=== PATIENT | female | born 1980 | race Two or more races ===

== ENCOUNTER 2022-03-14 11:06 | Emergency (ER) | payer OTHER, SELFPAY ==
--- NOTE | ~2022-03-14 | CT_ITS ---
EXAMINATION: CT HEAD WITHOUT CONTRAST CLINICAL INFORMATION: Headache. COMPARISON: None TECHNIQUE: Contiguous axial imaging was performed from the skull base to vertex without intravenous administration of contrast. This CT examination was performed using dose optimization techniques as appropriate, variously including the following: *Automated exposure control *Adjustment of mA and/or kV according to patient size (this includes techniques or standardized protocols for targeted exams where dose is matched to indication/reason for exam; i.e. extremities or head) *Use of iterative reconstruction technique DLP: 744 mGy-cm FINDINGS: There is no acute intra-axial, extra-axial bleed, masses or midline shift. There is no acute infarction evolution. The lateral ventricles are symmetrical in size and configuration without enlargement. No acute edema seen. The chen to white matter difference is maintained normal. Bone windows reveal no calvarial abnormality. There is no scalp soft tissue abnormality. Bilateral paranasal sinuses and mastoid air cells are well-aerated.. CT/CT head/brain wo IV con IMPRESSION: No acute intracranial process seen.
--- NOTE | ~2022-03-14 | XR_ITS ---
EXAMINATION: XR CHEST CLINICAL INFORMATION: Shortness of breath. COMPARISON: None TECHNIQUE: Portable AP view of the chest was obtained. FINDINGS: No significant abnormality is noted involving the heart, lungs, mediastinum, bony thorax or soft tissues. XR/XR chest 1V IMPRESSION: Unremarkable examination.
[2022-03-14 11:39] VITALS: BP 142/79; PULSE 70; RESP 18; TEMP 36.4; O2SAT 98; BMI 39.1
--- NOTE | 2022-03-14 11:43 | ECG_ITS ---
Test Reason : HEADACHE/NAUSEA Blood Pressure : / mmHG Vent. Rate : 064 BPM Atrial Rate : 064 BPM P-R Int : 132 ms QRS Dur : 074 ms QT Int : 406 ms P-R-T Axes : 047 006 -01 degrees QTc Int : 418 ms Normal sinus rhythm Low voltage QRS Nonspecific T wave abnormality Abnormal ECG No previous ECGs available Referred By: Omega Segovia Electronically Signed By:ELVIS JACOBO MD
--- NOTE | 2022-03-14 11:44 | ED_ITS ---
HPI - General Adult General Chief complaint: Headache Stated complaint: Headache/Nausea/SOB Time Seen by Provider: 03/14/22 13:42 Related Data Previous Rx's Medication Instructions Recorded ibuprofen 800 mg tablet 800 mg PO Q6H PRN pain #30 tabs 03/14/22 metoclopramide HCl 10 mg tablet 10 mg PO Q6H PRN nausea and 03/14/22 vomiting #14 tabs Allergies Allergy/AdvReac Type Severity Reaction Status Date / Time No Known Allergies Allergy Unverified 10/24/19 19:47 [No Known Allergies*] [facility] Social History Social History Advance Directives: Yes Advance Directives Information Provided: Yes Advance Directives on File: No Physical Exam ED Vital Signs: Vital Signs - 24 hr 03/14/22 11:39 03/14/22 17:15 Temperature 97.5 F Pulse Rate 70 64 Respiratory Rate 18 16 Blood Pressure 142/79 H 115/70 Pulse Oximetry 98 100 Oxygen Delivery Method Room Air Room Air BMI result Body Mass Index 39.1 Course Course Course Narrative: 41 yold female presents to the ED for headache, dizziness, SoB, and photosens itibity. patient denies any neuro/stroke symptoms. negative for any neuro defecitis on exam. states MRI finding on [facility], but does not know what it is. labs ordered. No neck stiffness on exam. Medications Administered Discontinued Medications Generic Name Dose Route Start Last Admin Trade Name Freq PRN Reason Stop Dose Admin Sodium Chloride 1,000 mls @ 999 mls/hr 03/14/22 15:30 03/14/22 16:14 Ns IV 03/14/22 16:30 999 mls/hr .Q1H1M DOMINGO Administration Ketorolac Tromethamine 30 mg 03/14/22 15:21 03/14/22 16:17 Ketorolac Tromethamine 15 Mg/Ml Vial IVPUSH 03/14/22 15:22 30 mg ONCE ONE Administration Medical Decision Making Lab Data 03/14/22 12:05 03/14/22 12:05 Labs: Lab Results 03/14/22 03/14/22 03/14/22 Range/Units 12:05 12:05 12:05 WBC 6.0 (4.8-10.8) X10*3/uL RBC 4.60 (4.20-5.50) X10*6/uL Hgb 13.0 (12.0-16.0) g/dl Hct 39.4 (37.0-47.0) % MCV 85.7 (80.0-98.0) fL MCH 28.3 (27.0-33.0) pg MCHC 33.0 (31.0-35.0) g/dl RDW 13.4 (11.0-16.0) % Plt Count 359 (160-400) X10*3/uL MPV 9.8 (9.4-12.3) fL Immature Gran % (Auto) 0.3 (0.0-0.4) % Neut % (Auto) 49.7 (45-73) % Lymph % (Auto) 40.7 H (20-40) % [place] % (Auto) 7.3 (2-11) % Eos % (Auto) 1.7 (0-4) % Baso % (Auto) 0.3 (0-2) % Lymph # (Auto) 2.5 (1.2-4.9) X10*3/uL [place] # (Auto) 0.4 (0.1-1.2) X10*3/uL Eos # (Auto) 0.1 (0.0-0.4) X10*3/uL Baso # (Auto) 0.0 (0.0-0.2) X10*3/uL Abs Immat Gran (auto) 0.02 (0.00-0.03) X10*3/uL Absolute Neuts (auto) 3.0 (2.0-8.3) x10*3/uL Absolute Nucleated RBC 0.000 (0.0-0.012) X10*3/uL Nucleated RBC % (auto) 0.0 (0.0-0.2) /100WBC PT 12.0 (10.0-13.1) SEC INR 1.0 (0.9-1.1) APTT 29.6 (26.0-36.4) SEC Sodium 138 (135-145) mmol/L Potassium 4.1 (3.3-5.1) mmol/L Chloride 106 (96-108) mmol/L Carbon Dioxide 22 (22-29) mmol/L Anion Gap 14 (12-20) BUN 9 (9-16) mg/dL Creatinine 0.82 (0.5-1.4) mg/dL Estim Creat Clear Calc 110.6 Estimated GFR > 60 Random Glucose 86 (60-115) mg/dL Calcium 9.1 (8.4-10.2) mg/dL Total Bilirubin 0.3 (0.0-1.0) mg/dL AST 15 (5-31) U/L ALT 15 (0-31) U/L Alkaline Phosphatase 73 (39-117) U/L Troponin I High Sens (<3.5-17.0) ng/L Total Protein 7.6 (6.5-8.0) g/dL Albumin 4.3 (3.5-5.0) g/dL TSH 2.43 (0.32-4.0) uIU/mL Beta HCG, Quant < 2 mIU/mL Influenza Type A (PCR) (Negative) Influenza Type B (PCR) (Negative) RSV RNA Qual (PCR) (Negative) SARS-CoV-2 RNA (RT-PCR) (Negative) 03/14/22 03/14/22 Range/Units 12:05 12:05 WBC (4.8-10.8) X10*3/uL RBC (4.20-5.50) X10*6/uL Hgb (12.0-16.0) g/dl Hct (37.0-47.0) % MCV (80.0-98.0) fL MCH (27.0-33.0) pg MCHC (31.0-35.0) g/dl RDW (11.0-16.0) % Plt Count (160-400) X10*3/uL MPV (9.4-12.3) fL Immature Gran % (Auto) (0.0-0.4) % Neut % (Auto) (45-73) % Lymph % (Auto) (20-40) % [place] % (Auto) (2-11) % Eos % (Auto) (0-4) % Baso % (Auto) (0-2) % Lymph # (Auto) (1.2-4.9) X10*3/uL [place] # (Auto) (0.1-1.2) X10*3/uL Eos # (Auto) (0.0-0.4) X10*3/uL Baso # (Auto) (0.0-0.2) X10*3/uL Abs Immat Gran (auto) (0.00-0.03) X10*3/uL Absolute Neuts (auto) (2.0-8.3) x10*3/uL Absolute Nucleated RBC (0.0-0.012) X10*3/uL Nucleated RBC % (auto) (0.0-0.2) /100WBC PT (10.0-13.1) SEC INR (0.9-1.1) APTT (26.0-36.4) SEC Sodium (135-145) mmol/L Potassium (3.3-5.1) mmol/L Chloride (96-108) mmol/L Carbon Dioxide (22-29) mmol/L Anion Gap (12-20) BUN (9-16) mg/dL Creatinine (0.5-1.4) mg/dL Estim Creat Clear Calc Estimated GFR Random Glucose (60-115) mg/dL Calcium (8.4-10.2) mg/dL Total Bilirubin (0.0-1.0) mg/dL AST (5-31) U/L ALT (0-31) U/L Alkaline Phosphatase (39-117) U/L Troponin I High Sens < 3.5 (<3.5-17.0) ng/L Total Protein (6.5-8.0) g/dL Albumin (3.5-5.0) g/dL TSH (0.32-4.0) uIU/mL Beta HCG, Quant mIU/mL Influenza Type A (PCR) NEGATIVE (Negative) Influenza Type B (PCR) NEGATIVE (Negative) RSV RNA Qual (PCR) NEGATIVE (Negative) SARS-CoV-2 RNA (RT-PCR) NEGATIVE (Negative) Discharge Plan Discharge Clinical Impression: Migraine Patient Disposition: Home, Self-Care Instructions: Migraine Headache (ED) Additional Instructions: Reglan/metoclopramide for nausea and/or headache went down as needed. Ibuprofen for headache. You can take both of them together. Call Dr. Jaylon dang for follow-up in Neurology Prescriptions: New metoclopramide HCl 10 mg tablet 10 mg PO Q6H PRN (Reason: nausea and vomiting) Qty: 14 0RF ibuprofen 800 mg tablet 800 mg PO Q6H PRN (Reason: pain) Qty: 30 0RF Referrals: Vernell Iyer MD [Physician] - Interventions: ED Discharge Assessment Last Done: 03/14/22 17:15 Discharge Date/Time: 03/14/22 17:16
[2022-03-14 12:10] LABS: MANUAL DIFF FLAG NO
[2022-03-14 12:12] LABS: Basophils Percent Auto 0.3 % (0-2); Eosinophils Absolute Auto 0.1 X10*3/uL (0.0-0.4); Eosinophils Percent Auto 1.7 % (0-4); Hematocrit 39.4 % (37.0-47.0); Imm Gran Abs Auto 0.02 X10*3/uL (0.00-0.03); Imm Gran Pct Auto 0.3 % (0.0-0.4); Lymphocytes Absolute Auto 2.5 X10*3/uL (1.2-4.9); Lymphocytes Percent Auto 40.7 % (20-40); Mean Corpuscular Hemoglobin 28.3 pg (27.0-33.0); Mean Corpuscular Volume 85.7 fL (80.0-98.0); Mean Platelet Volume 9.8 fL (9.4-12.3); Monocytes Absolute Auto 0.4 X10*3/uL (0.1-1.2); Monocytes Percent Auto 7.3 % (2-11); Neutrophils Percent Auto 49.7 % (45-73); Platelet Count 359 X10*3/uL (160-400); Red Cell Distribution Width 13.4 % (11.0-16.0)
[2022-03-14 12:22] LABS: Partial Thromboplastin Time 29.6 SEC (26.0-36.4)
[2022-03-14 12:32] LABS: Alanine Aminotransferase 15 U/L (0-31); Albumin Level 4.3 g/dL (3.5-5.0); Alkaline Phosphatase 73 U/L (39-117); Anion Gap 14 (12-20); Aspartate Amino Transferase 15 U/L (5-31); Bilirubin Total 0.3 mg/dL (0.0-1.0); Blood Urea Nitrogen 9 mg/dL (9-16); Calcium 9.1 mg/dL (8.4-10.2); Carbon Dioxide 22 mmol/L (22-29); Chloride 106 mmol/L (96-108); Creatinine Clr Calc Pharmacy 110.6; Estimated Glomerular Filt Rate > 60; Glucose Random 86 mg/dL (60-115); HCG Quantitative < 2 mIU/mL; Potassium 4.1 mmol/L (3.3-5.1); Sodium 138 mmol/L (135-145); Total Protein 7.6 g/dL (6.5-8.0); Troponin-I High Sensitivity < 3.5 ng/L (<3.5-17.0)
[2022-03-14 12:47] LABS: Influenza A PCR NEGATIVE (Negative); Influenza B PCR NEGATIVE (Negative); Resp Syncy Virus RNA Qual PCR NEGATIVE (Negative); SARS COV2 PCR INHOUSE NEGATIVE (Negative)
--- NOTE | 2022-03-14 13:11 | MHC.EDTECH ---
covering tech's break in triage. EKG completed now.
--- NOTE | 2022-03-14 14:30 | ED_ITS ---
HPI - Headache General Chief Complaint: Headache Stated Complaint: Headache/Nausea/SOB Time Seen by Provider: 03/14/22 13:42 Source: patient Limitations: no limitations History of Present Illness HPI Narrative: Patient presents because of worsening headache over the last 3 days. She has no history of headaches or migraines in the past. She has a recent history significant for back injury for which she had an MRI that apparently showed an issue with her pituitary gland on the screening scan. She is due to have this worked up officially. The MRI was last week prior to the headaches. She has also complaining of some left eye blurriness which has been there for several months but much worse over the past 3 days. She saw an dinkey engine firer for this last month and was prescribed glasses but states did not help. As she feels off balance as well. She described the dizziness as without room spinning. Occasionally feels like she may pass out. She states she typically has low blood pressure. Remote history of Lyme disease. Recent right middle finger joint swelling which is spontaneous. No recent significant injuries or illness. Related Data Previous Rx's Medication Instructions Recorded ibuprofen 800 mg tablet 800 mg PO Q6H PRN pain #30 tabs 03/14/22 metoclopramide HCl 10 mg tablet 10 mg PO Q6H PRN nausea and 03/14/22 vomiting #14 tabs Allergies Allergy/AdvReac Type Severity Reaction Status Date / Time No Known Allergies Allergy Unverified 10/24/19 19:47 [No Known Allergies*] Review of Systems Constitutional: Comments: No fevers or chills Eyes: Comments: Left eye blurriness Cardiovascular: Comments: Occasional intermittent chest pain Respiratory: Comments: No cough or sputum. No dyspnea Gastrointestinal: Comments: No abdominal pain. Some nausea today. Genitourinary: Comments: No urinary symptoms Musculoskeletal: Comments: Right middle finger swelling but no injuries. Integumentary/Breasts: Comments: No rash Neurologic: Comments: Dizziness as described Allergic/Immunologic: Comments: History of Lyme disease 2019 [facility] Social History Social History Advance Directives: Yes Advance Directives Information Provided: Yes Advance Directives on File: No Physical Exam Vital Signs: Vital Signs: Last Vital Signs Temp 97.5 F 03/14/22 11:39 Pulse 70 03/14/22 11:39 Resp 18 03/14/22 11:39 BP 142/79 H 03/14/22 11:39 Pulse Ox 98 03/14/22 11:39 O2 Del Method 03/14/22 11:39 BMI result Body Mass Index 39.1 Const: Other: Awake alert. No acute distress HEENT: Other: Normocephalic atraumatic. Nontender. Eyes: Other: Pupils equal round reactive to light. Extraocular muscles intact. Funduscopic exam unremarkable, nondilated exam. Visual field testing is normal in the right eye. It is markedly abnormal in the left eye with lateral field and inferior field complete defect. Medial field is intact. Superior field is partially deffective Neck: Other: No meningismus Resp: Other: Clear and equal bilaterally Cardio: Other: Regular rate and rhythm without murmurs rubs or gallops GI: Other: Soft nontender nondistended Skin: Other: Warm pink and dry without rash Neuro: Other: Alert and oriented x4. Extremities is strength is intact. 5+ x4. Visual field defects as described. [id number] intact on the right. Mild ataxic on the left with difficulty making contact. Positive Romberg sign. She is able to sit stand with feet together while eyes are open. She is very off balance and needs tourist information assistant when she closed her eyes. No pronator drift and a 10 count. Extrem: Other: Extremity exam normal with exception of right ring finger with mild tenderness over the PIP joint with minimal swelling. Full extension. Slightly decreased flexion. Other fingers normal. There is no erythema, warmth, fluctuance or evidence of infection. Medications Administered Discontinued Medications Generic Name Dose Route Start Last Admin Trade Name Freq PRN Reason Stop Dose Admin Sodium Chloride 1,000 mls @ 999 mls/hr 03/14/22 15:30 03/14/22 16:14 Ns IV 03/14/22 16:30 999 mls/hr .Q1H1M DOMINGO Administration Ketorolac Tromethamine 30 mg 03/14/22 15:21 03/14/22 16:17 Ketorolac Tromethamine 15 Mg/Ml Vial IVPUSH 03/14/22 15:22 30 mg ONCE ONE Administration Medical Decision Making Medical Decision Making [facility] Narrative: Patient with headache x3 days. New onset. Concerning in that she has visual field defect of her left eye only. Multiple potential etiologies. Retinal detachment, vitreous hemorrhage, retinal artery or vein branch occlusion. Intracranial differential would include pituitary mass, hickman aneurysm, Occipital involvement unlikely as it is is hemianopsia affecting only the left eye. 16:57. Workup so far shows CT scan without any abnormalities. Lab work is unremarkable. I treated the patient with normal saline, Toradol, Reglan. At this point time she is completely asymptomatic and her vision has improved. Re-examination shows she no longer has visual field defects. Is a very reassuring and likely migraine as cause of her symptoms. I also received the MRI results from her PCP via fax. It showed a prominent pituitary fossa with a T2 hyperdensity. No specific abnormalities however. This will be followed up as an outpatient as already planned. I will refer her to Neurology. She has a follow-up with her PCP Dr. Chung on . Lab Data 03/14/22 12:05 03/14/22 12:05 Labs: Lab Results 03/14/22 03/14/22 03/14/22 Range/Units 12:05 12:05 12:05 WBC 6.0 (4.8-10.8) X10*3/uL RBC 4.60 (4.20-5.50) X10*6/uL Hgb 13.0 (12.0-16.0) g/dl Hct 39.4 (37.0-47.0) % MCV 85.7 (80.0-98.0) fL MCH 28.3 (27.0-33.0) pg MCHC 33.0 (31.0-35.0) g/dl RDW 13.4 (11.0-16.0) % Plt Count 359 (160-400) X10*3/uL MPV 9.8 (9.4-12.3) fL Immature Gran % (Auto) 0.3 (0.0-0.4) % Neut % (Auto) 49.7 (45-73) % Lymph % (Auto) 40.7 H (20-40) % [place] % (Auto) 7.3 (2-11) % Eos % (Auto) 1.7 (0-4) % Baso % (Auto) 0.3 (0-2) % Lymph # (Auto) 2.5 (1.2-4.9) X10*3/uL [place] # (Auto) 0.4 (0.1-1.2) X10*3/uL Eos # (Auto) 0.1 (0.0-0.4) X10*3/uL Baso # (Auto) 0.0 (0.0-0.2) X10*3/uL Abs Immat Gran (auto) 0.02 (0.00-0.03) X10*3/uL Absolute Neuts (auto) 3.0 (2.0-8.3) x10*3/uL Absolute Nucleated RBC 0.000 (0.0-0.012) X10*3/uL Nucleated RBC % (auto) 0.0 (0.0-0.2) /100WBC PT 12.0 (10.0-13.1) SEC INR 1.0 (0.9-1.1) APTT 29.6 (26.0-36.4) SEC Sodium 138 (135-145) mmol/L Potassium 4.1 (3.3-5.1) mmol/L Chloride 106 (96-108) mmol/L Carbon Dioxide 22 (22-29) mmol/L Anion Gap 14 (12-20) BUN 9 (9-16) mg/dL Creatinine 0.82 (0.5-1.4) mg/dL Estim Creat Clear Calc 110.6 Estimated GFR > 60 Random Glucose 86 (60-115) mg/dL Calcium 9.1 (8.4-10.2) mg/dL Total Bilirubin 0.3 (0.0-1.0) mg/dL AST 15 (5-31) U/L ALT 15 (0-31) U/L Alkaline Phosphatase 73 (39-117) U/L Troponin I High Sens (<3.5-17.0) ng/L Total Protein 7.6 (6.5-8.0) g/dL Albumin 4.3 (3.5-5.0) g/dL TSH 2.43 (0.32-4.0) uIU/mL Beta HCG, Quant < 2 mIU/mL Influenza Type A (PCR) (Negative) Influenza Type B (PCR) (Negative) RSV RNA Qual (PCR) (Negative) SARS-CoV-2 RNA (RT-PCR) (Negative) 03/14/22 03/14/22 Range/Units 12:05 12:05 WBC (4.8-10.8) X10*3/uL RBC (4.20-5.50) X10*6/uL Hgb (12.0-16.0) g/dl Hct (37.0-47.0) % MCV (80.0-98.0) fL MCH (27.0-33.0) pg MCHC (31.0-35.0) g/dl RDW (11.0-16.0) % Plt Count (160-400) X10*3/uL MPV (9.4-12.3) fL Immature Gran % (Auto) (0.0-0.4) % Neut % (Auto) (45-73) % Lymph % (Auto) (20-40) % [place] % (Auto) (2-11) % Eos % (Auto) (0-4) % Baso % (Auto) (0-2) % Lymph # (Auto) (1.2-4.9) X10*3/uL [place] # (Auto) (0.1-1.2) X10*3/uL Eos # (Auto) (0.0-0.4) X10*3/uL Baso # (Auto) (0.0-0.2) X10*3/uL Abs Immat Gran (auto) (0.00-0.03) X10*3/uL Absolute Neuts (auto) (2.0-8.3) x10*3/uL Absolute Nucleated RBC (0.0-0.012) X10*3/uL Nucleated RBC % (auto) (0.0-0.2) /100WBC PT (10.0-13.1) SEC INR (0.9-1.1) APTT (26.0-36.4) SEC Sodium (135-145) mmol/L Potassium (3.3-5.1) mmol/L Chloride (96-108) mmol/L Carbon Dioxide (22-29) mmol/L Anion Gap (12-20) BUN (9-16) mg/dL Creatinine (0.5-1.4) mg/dL Estim Creat Clear Calc Estimated GFR Random Glucose (60-115) mg/dL Calcium (8.4-10.2) mg/dL Total Bilirubin (0.0-1.0) mg/dL AST (5-31) U/L ALT (0-31) U/L Alkaline Phosphatase (39-117) U/L Troponin I High Sens < 3.5 (<3.5-17.0) ng/L Total Protein (6.5-8.0) g/dL Albumin (3.5-5.0) g/dL TSH (0.32-4.0) uIU/mL Beta HCG, Quant mIU/mL Influenza Type A (PCR) NEGATIVE (Negative) Influenza Type B (PCR) NEGATIVE (Negative) RSV RNA Qual (PCR) NEGATIVE (Negative) SARS-CoV-2 RNA (RT-PCR) NEGATIVE (Negative) Discharge Plan Discharge Clinical Impression: Migraine Patient Disposition: Home, Self-Care Instructions: Migraine Headache (ED) Additional Instructions: Reglan/metoclopramide for nausea and/or headache went down as needed. Ibuprofen for headache. You can take both of them together. Call Dr. Iyer office for follow-up in Neurology Prescriptions: New metoclopramide HCl 10 mg tablet 10 mg PO Q6H PRN (Reason: nausea and vomiting) Qty: 14 0RF ibuprofen 800 mg tablet 800 mg PO Q6H PRN (Reason: pain) Qty: 30 0RF Referrals: Vernell Iyer MD [Physician] -
[2022-03-14 14:58] LABS: TSH reflex Free T4 2.43 uIU/mL (0.32-4.0)
--- NOTE | 2022-03-14 15:39 | MHC.CM.ED ---
PCP is Jm Chung in [place]. Pt has appointment on 03/17 @10am. Dr. Lebron aware
[2022-03-14] MEDS: 0.9 % Sodium Chloride 1,000 ML 999 ML IV (16:14)
[2022-03-14] MEDS: Ketorolac Tromethamine 15 MG/ML VIAL 30 MG IVPUSH (16:17)
[2022-03-14 17:15] VITALS: BP 115/70; PULSE 64; RESP 16; O2SAT 100
== END 2022-03-14 17:16 | disposition home or self-care (01) ==
PROVIDERS: Physician Assistant; Emergency Provider Emergency Medicine
DX: G43.909 Migraine, unspecified, not intractable, without status migrainosus (principal); H53.8 Other visual disturbances; Z20.822 Contact with and (suspected) exposure to COVID-19; Z20.828 Contact with and (suspected) exposure to other viral communicable diseases
CPT/HCPCS: 0241U; 36415; 70450; 71045; 80053; 84443; 84484; 84702; 85025; 85610; 85730; 93005; 96374; 99284; J1885

== ENCOUNTER 2022-03-29 08:59 | Outpatient (REF) | payer OTHER, SELFPAY ==
[2022-03-29 10:26] LABS: Erythrocyte Sedimentation Rate 18 MM/HR (0-20)
[2022-03-30 07:59] LABS: Follicle Stimulating Hormone 5.1 mIU/mL; Lutenizing Hormone 7.3 mIU/mL; Prolactin 5.8 ng/mL
[2022-03-30 08:59] LABS: Lyme Abs Screen <0.90 index
[2022-03-30 14:48] LABS: Anti Nuclear Antibody Screen NEGATIVE (NEGATIVE)
== END 2022-03-29 09:00 | disposition home or self-care (01) ==
LOC: HO.LAB 08:59
PROVIDERS: Visit Provider Psychiatry & Neurology Neurology
DX: E23.6 Other disorders of pituitary gland (principal)
CPT/HCPCS: 36415; 83001; 83002; 84146; 84307; 85652; 86038; 86039; 86617; 86618

== ENCOUNTER 2022-05-24 13:49 | Outpatient (REF) | payer MEDICAID, SELFPAY ==
--- NOTE | ~2022-05-24 | MR_ITS ---
EXAMINATION: MR BRAIN WITHOUT AND WITH CONTRAST CLINICAL INFORMATION: Pituitary cyst. COMPARISON: CT head 03/14/2022. TECHNIQUE: Multiplanar, multisequence MRI of the brain was obtained before and after the intravenous administration of 5 mL Gadavist. Pituitary protocol sequences are obtained. FINDINGS: Diffusion-weighted images demonstrate no evidence of acute infarcts. A 3 mm cystic focus is present within the left cerebral peduncle and may represent a dilated perivascular space or possible lacunar infarct. No scoliosis is noted in the adjacent brain parenchyma to definitively suggest a lacunar infarct. The ventricles and sulci are normal in size and configuration. No intracranial hemorrhage noted. The craniocervical junction cerebellar tonsils are normal in appearance. No suspicious marrow abnormalities are visualized. Normal flow-related signal intensity is present in the major intracranial vessels and dural sinuses. Orbits and globes are normal in appearance. No significant coastal thickening or retained secretions noted within the mastoid air cells, middle ear cavities and paranasal sinuses. Thin section imaging of the pituitary demonstrates convex inward configuration of the pituitary with a maximum craniocaudal dimension of the pituitary is approximately 3 mm. Mild leftward deviation of the pituitary stalk is noted. A 2 mm x 1 mm area of relative low signal intensity on contrast-enhanced images is noted in close proximity to the pituitary stalk within the pituitary at the junction of the adenohypophysis and neurohypophysis and may represent a small Rathke's cleft cyst. However, this finding is too small to definitively characterize. No additional focal parenchymal lesions of the pituitary are identified. The cavernous sinus, suprasellar cistern, and optic chiasm are normal in appearance. Whole brain postcontrast enhanced images demonstrates no abnormal enhancement elsewhere within the brain. MR/MR head/brain wo/w con IMPRESSION: 1. 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 This Finding is too small to definitively characterize. A pituitary microadenoma could have a similar appearance. As clinically indicated, findings may be further evaluated with 6-12 month follow-up pituitary product MRI of the brain. The superior margin of the pituitary demonstrates a convex inward configuration (empty sella configuration). This finding may represent normal anatomic variation. This configuration of the pituitary may sometimes be associated with idiopathic intracranial hypertension though no additional findings are present to specifically suggest this entity. 2. Indeterminate 3 mm focus within the left middle cerebral peduncle which may represent a dilated perivascular space or chronic lacunar infarct. No gliosis is noted in the adjacent brain parenchyma which favors this finding representing a benign dilated perivascular space.
== END 2022-05-24 13:50 | disposition home or self-care (01) ==
LOC: HO.MRI 13:49
PROVIDERS: Visit Provider Psychiatry & Neurology Neurology
DX: E23.6 Other disorders of pituitary gland (principal)
CPT/HCPCS: 70553; A9585

== ENCOUNTER 2023-11-01 10:52 | Outpatient (REF) | payer MEDICAID, SELFPAY ==
[2023-11-01 14:26] LABS: Vitamin B12 486 pg/mL (200-900)
[2023-11-02 05:40] LABS: Hepatitis A Antibody IgM 0.17 Index (0-0.79); ~Hepatitis A Antibody IgM Nonreactive (Nonreactive)
[2023-11-02 05:41] LABS: HBS Num1 0.35 mIU/mL (0-7.99); HBc Num1 0.16 S/CO (0.00-0.79); HBsAGNum1 0.57 S/CO (0.00-0.99); HIV AB/AG Nonreactive (Nonreactive); HIV Num 1 0.04 S/CO (0.00-0.99); Hepatitis B Core Antibody Nonreactive (Nonreactive); Hepatitis B Surface Antigen Negative (Negative); ~HepC Num1 0.28 S/CO (0.00-0.79); ~Hepatitis B Surface Antibody NONREACTIVE (Nonreactive); ~Hepatitis C Antibody Nonreactive (Nonreactive)
[2023-11-03 07:28] LABS: RPR Rapid Plasma Reagin NON-REACTIVE (NON-REACTIVE)
== END 2023-11-01 10:53 | disposition home or self-care (01) ==
LOC: HO.HHCL 10:52
PROVIDERS: Visit Provider Nurse Practitioner Primary Care
DX: Z11.3 Encounter for screening for infections with a predominantly sexual mode of transmission (principal); R20.0 Anesthesia of skin
CPT/HCPCS: 36415; 82607; 86592; 86704; 86706; 86709; 86803; 87340; 87389

== ENCOUNTER 2023-12-15 09:33 | Outpatient (REF) | payer MEDICAID, SELFPAY ==
[2023-12-15 12:14] LABS: Estimated Average Glucose 103 mg/dL; Hemoglobin A1C 112.7853 umol/L; Hemoglobin A1c % 5.2 % (<6.0); Total Hemoglobin (HGBA1C) 3375.0318 umol/L
[2023-12-15 12:37] LABS: Alanine Aminotransferase 18 U/L (0-31); Albumin Level 4.3 g/dL (3.5-5.0); Alkaline Phosphatase 73 U/L (39-117); Anion Gap 12 (12-20); Aspartate Amino Transferase 22 U/L (5-31); Bilirubin Total 0.2 mg/dL (0.0-1.0); Blood Urea Nitrogen 12 mg/dL (9-16); Calcium 9.1 mg/dL (8.4-10.2); Carbon Dioxide 24 mmol/L (22-29); Chloride 106 mmol/L (96-108); Cholesterol 218 mg/dL (<200); Estimated Glomerular Filt Rate > 60; Glucose Random 94 mg/dL (60-115); HDL Cholesterol 42 mg/dL (>40); LDL Cholesterol Calculated 151 mg/dL (<100); Sodium 138 mmol/L (135-145); Total Protein 7.8 g/dL (6.5-8.0); Triglycerides 129 mg/dL (<150)
[2023-12-15 12:39] LABS: TSH reflex Free T4 3.01 uIU/mL (0.32-4.0)
== END 2023-12-15 09:34 | disposition home or self-care (01) ==
LOC: HO.HHCL 09:33
PROVIDERS: Visit Provider General Practice
DX: E66.3 Overweight (principal)
CPT/HCPCS: 36415; 80053; 80061; 83036; 84443

== ENCOUNTER 2024-01-22 09:23 | Emergency (ER) | payer MEDICAID, SELFPAY ==
--- NOTE | ~2024-01-22 | CT_ITS ---
EXAMINATION: CT ABDOMEN AND PELVIS WITHOUT CONTRAST CLINICAL INFORMATION: Flank and back pain, rule out kidney stones. COMPARISON: 02/08/2019 TECHNIQUE: Multidetector volumetric imaging was performed from the superior aspect of the liver through the pubic symphysis. Sagittal and coronal reformatted images were obtained on the technologist's workstation. This CT examination was performed using dose optimization techniques as appropriate, variously including the following: *Automated exposure control *Adjustment of mA and/or kV according to patient size (this includes techniques or standardized protocols for targeted exams where dose is matched to indication/reason for exam; i.e. extremities or head) *Use of iterative reconstruction technique DLP: 749 mGy-cm Examination of solid viscera is limited without IV contrast. FINDINGS: LUNG BASES: Lung bases are clear bilaterally. No effusions. Heart size is normal. Normal GE junction. LIVER, GALLBLADDER, AND BILIARY TREE: The liver is normal in size, shape, and attenuation. No focal hepatic lesion or biliary ductal dilatation is present. The gallbladder is unremarkable with no evidence of radiopaque gallstones, gallbladder wall thickening, or obvious pericholecystic inflammatory changes. PANCREAS: Unremarkable. SPLEEN: Unremarkable. ADRENAL GLANDS: Unremarkable. KIDNEYS AND URETERS: The kidneys are normal in size, shape, and attenuation. No hydronephrosis, hydroureter, or calculi seen. No perinephric stranding. BLADDER: Unremarkable. GASTROINTESTINAL TRACT: The small and large bowel are unremarkable. The appendix is unremarkable. ABDOMINAL WALL: No significant hernia is appreciated. LYMPH NODES: Normal. VASCULAR: Unremarkable. PELVIC VISCERA: Unremarkable. OSSEOUS STRUCTURES: -No acute findings. There is a grade 1, 4 mm spondylolisthesis L5-S1, slightly worsened from previous. CT/CT abdomen pelvis wo IV con IMPRESSION: 1. No acute findings in the abdomen or pelvis. No urological calculus or obstruction. 2. Grade 1 spondylolisthesis L5-S1. Electronically signed by: Robel Ojeda MD 01/22/2024 01:25 PM EST
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
[2024-01-22 09:37] VITALS: BP 109/70; PULSE 82; RESP 16; TEMP 36.5; O2SAT 96; BMI 37.3
[2024-01-22 10:39] LABS: Appearance Urine Clear; Color Urine Yellow; Glucose Urine UA Negative (Negative); Leukocyte Esterase Urine Negative (Negative); Nitrite Urine Negative (Negative); Specific Gravity - Urine >= 1.030 (1.005-1.025); UMIC TRIGGER UACC YES; Urine Blood Trace (Negative); Urine Ketones Negative (Negative); Urine Protein Negative (Neg-Trace)
[2024-01-22 10:40] LABS: Urine Pregnancy NEGATIVE (NEGATIVE)
[2024-01-22 10:41] LABS: UPreg QC Valid YES
[2024-01-22 10:44] LABS: Bacteria Urine 2+ (None Seen); Hyaline Casts Urine 0-2 /LPF (0-2); WBC Urine 0-5 /HPF (0-5)
--- NOTE | 2024-01-22 10:54 | ED.GENADULT ---
HPI - General Adult General Chief complaint: Back Pain/Injury Stated complaint: lower back pain Time Seen by Provider: 01/22/24 10:21 Source: patient Mode of arrival: ambulatory Limitations: no limitations History of Present Illness ED Provider: Omega Segovia HPI narrative: 43 yold female pituary cyst and benign thryoid nodules presents to the ED for dark urine, slight difficulty urinating, lumbar spondylosis and left flank low back pain radiating down left leg. Patient states past medical history of kidney infection. Patient denies any nausea, vomiting, fever, abdominal pain, or chills. Patient denies any recent trauma. Patient denies any vaginal discharge or vaginal lesions. Patient denies any urinary/bowel incontinence, patient denies any history of IV drug use or history of any immunocompromise disease Related Data Previous Rx's ?Medication ?Instructions ?Recorded ibuprofen 800 mg tablet 800 mg PO Q6H PRN pain #30 tabs 03/14/22 metoclopramide HCl 10 mg tablet 10 mg PO Q6H PRN nausea and 03/14/22 vomiting #14 tabs naproxen 500 mg tablet 500 mg PO BID PRN pain 7 days #14 01/22/24 tabs Allergies Allergy/AdvReac Type Severity Reaction Status Date / Time No Known Allergies Allergy Verified 01/22/24 09:38 [No Known Allergies*] Review of Systems Review of Systems: Back pain radiating down left leg. Dark urine slight difficulty with urination. Yes all other systems are reviewed and are negative [facility] Social History Social History Advance Directives: No Advance Directives Information Provided: No Do you have a plan to hurt others: No Plan Physical Exam ED Vital Signs: Vital Signs - 24 hr 01/22/24 09:37 01/22/24 11:31 Temperature 97.7 F 97.7 F Pulse Rate 82 82 Respiratory Rate 16 16 Blood Pressure 109/70 109/70 Pulse Oximetry 96 96 Oxygen Delivery Method Room Air Room Air BMI result Body Mass Index 37.3 Const General: cooperative, healthy appearing, comfortable, no acute distress, well developed, alert, awake and Physically active Orientation/consciousness: patient oriented x3 HENMT Head: Yes normal to inspection, Yes No palpable skull fracture present, Yes normocephalic and Yes atraumatic Eyes General: appearance normal, both eyes and all related structures Neck Neck: Yes normal visual inspection, Yes full ROM, Yes no lymphadenopathy, Yes no meningeal signs, Yes trachea midline, Yes supple, No anterior neck swelling and No tender Chest Chest palpation & inspection: normal inspection of the chest and normal palpation of entire chest wall Resp Effort & Inspection: normal respiratory effort and able to speak in complete sentences Auscultation: clear to auscultation bilaterally Cardio Jugular venous distension: no JVD Heart sounds: S1 normal heart sound present and S2 normal heart sound present GI Inspection: Yes normal to inspection Palpation (GI): Soft to palpation, not firm, nontender, no guarding and not rigid General: Yes no CVA tenderness Back/Spine/Pelvis Back: no CVA tenderness and back tenderness (mild lumbar spine) Skin General skin exam: no rashes or lesions noted, elasticity normal and turgor normal Neuro General: patient oriented x3, gait normal, tone normal, moves all extremities, Normal light touch and pain sensation, no meningeal signs, no focal motor deficits, CN's II-XI intact bilaterally and normal sensation to monofilament Extrem General: Yes normal to inspection, Yes full ROM and Yes capillary refill normal Psych Appearance: grossly normal, well kempt and not disheveled Medical Decision Making Medical Decision Making MDM Narrative: 43-year-old female presents to ED for left lower side back pain slight difficulty urination in urine being dark. Abdominal exam benign on palpation. Negative for CVA or flanks. UA shows blood. Patient states not with menstruation. Patient will be sent for CT scan 11:28am; patient is leaving before CT scan lab results due to having to drop a going at work. Patient has signed out against medical advice knowning risk of and on life-threatening etiologies. Patient explained worrisome signs and informed to return to the ED immediately. 7:09pm: Patient's labs and CT scan came back without any acute life-threatening etiology. CT scan shows spondylosis. Patient was called and informed of lab and CT scan results and told to follow up with primary care provider. Differential Diagnosis Differential Diagnoses: The differential diagnosis associated with the presentation includes (Lumbar radiculopathy, UTI, kidney stone) Admission/Observation Consideration of admission/observation: Escalation of care including admission/observation considered Lab Data [facility] Lab Attestation statement: I reviewed the patient's lab results. 01/22/24 11:16 01/22/24 11:16 Labs: Lab Results 01/22/24 01/22/24 Range/Units 10:33 11:16 WBC 6.1 (4.8-10.8) X10*3/uL RBC 4.38 (4.20-5.50) X10*6/uL Hgb 12.8 (12.0-16.0) g/dl Hct 38.4 (37.0-47.0) % MCV 87.7 (80.0-98.0) fL MCH 29.2 (27.0-33.0) pg MCHC 33.3 (31.0-35.0) g/dl RDW 14.1 (11.0-16.0) % Plt Count 322 (160-400) X10*3/uL MPV 10.0 (9.4-12.3) fL Immature Gran % (Auto) 0.3 (0.0-0.4) % Neut % (Auto) 49.1 (45-73) % Lymph % (Auto) 39.7 (20-40) % [place] % (Auto) 9.3 (2-11) % Eos % (Auto) 1.3 (0-4) % Baso % (Auto) 0.3 (0-2) % Lymph # (Auto) 2.4 (1.2-4.9) X10*3/uL [place] # (Auto) 0.6 (0.1-1.2) X10*3/uL Eos # (Auto) 0.1 (0.0-0.4) X10*3/uL Baso # (Auto) 0.0 (0.0-0.2) X10*3/uL Abs Immat Gran (auto) 0.02 (0.00-0.03) X10*3/uL Absolute Neuts (auto) 3.0 (2.0-8.3) x10*3/uL Absolute Nucleated RBC 0.000 (0.0-0.012) X10*3/uL Nucleated RBC % (auto) 0.0 (0.0-0.2) /100WBC Sodium 139 (135-145) mmol/L Potassium 4.1 (3.3-5.1) mmol/L Chloride 107 (96-108) mmol/L Carbon Dioxide 24 (22-29) mmol/L Anion Gap 12 (12-20) BUN 12 (9-16) mg/dL Creatinine 0.79 (0.5-1.4) mg/dL Estim Creat Clear Calc 109.6 Estimated GFR > 60 Random Glucose 94 (60-115) mg/dL Calcium 8.8 (8.4-10.2) mg/dL Total Bilirubin 0.2 (0.0-1.0) mg/dL AST 16 (5-31) U/L ALT 18 (0-31) U/L Alkaline Phosphatase 72 (39-117) U/L Total Protein 7.6 (6.5-8.0) g/dL Albumin 4.3 (3.5-5.0) g/dL Urine Color Yellow Urine Appearance Clear Urine pH 5.0 (5.0-9.0) Ur Specific [place] >= 1.030 H (1.005-1.025) Urine Protein Negative (Neg-Trace) mg/dL Urine Glucose (UA) Negative (Negative) mg/dL Urine Ketones Negative (Negative) mg/dL Urine Blood Trace H (Negative) Urine Nitrite Negative (Negative) Ur Leukocyte Esterase Negative (Negative) Urine RBC 3-5 H (0-2) /HPF Urine WBC 0-5 (0-5) /HPF Ur Squamous Epith Cells 3-5 (0-2) /HPF Urine Bacteria 2+ (None Seen) Hyaline Casts 0-2 (0-2) /LPF Urine Test NEGATIVE (NEGATIVE) Independent Interpretation I performed an independent interpretation of an: CT Scan Radiology Impression Discussion of test interpretation with radiology: I have reviewed the radiologist's reading. Independent Historian Clinical information obtained from an independent historian. History obtained from or confirmed by: Other External Record Review External record reviewed: Other (Prior visits) Prescription Management I considered prescription management with: Pain Medication Discharge Plan Discharge Clinical Impression: Lumbar radiculopathy, Flank pain Patient Disposition: Left Against Medical Advice Instructions: Lumbar Radiculopathy (ED), Flank Pain (ED) Additional Instructions: You are leaving before CT scan and lab results. Recommend staying close to your cell phone in case we have to call you for any abnormal results. Return to the ED immediately for any abdominal pain, nausea, vomiting, flank pain, fever, chills, urinary/bowel incontinence, hematuria, dysuria, or any other concerning symptoms. Prescriptions: New naproxen 500 mg tablet 500 mg PO BID PRN (Reason: pain) 7 Days Qty: 14 0RF No Action metoclopramide HCl 10 mg tablet 10 mg PO Q6H PRN (Reason: nausea and vomiting) Qty: 14 0RF ibuprofen 800 mg tablet 800 mg PO Q6H PRN (Reason: pain) Qty: 30 0RF Stand Alone Forms: Against Medical Advice, Work/School Release Interventions: ED Discharge Assessment Last Done: 01/22/24 11:31 Discharge Date/Time: 01/22/24 11:34 Print Language: [place]
[2024-01-22 11:21] LABS: MANUAL DIFF FLAG NO
[2024-01-22 11:22] LABS: Basophils Percent Auto 0.3 % (0-2); Eosinophils Absolute Auto 0.1 X10*3/uL (0.0-0.4); Eosinophils Percent Auto 1.3 % (0-4); Hematocrit 38.4 % (37.0-47.0); Hemoglobin 12.8 g/dl (12.0-16.0); Imm Gran Abs Auto 0.02 X10*3/uL (0.00-0.03); Imm Gran Pct Auto 0.3 % (0.0-0.4); Lymphocytes Absolute Auto 2.4 X10*3/uL (1.2-4.9); Lymphocytes Percent Auto 39.7 % (20-40); Mean Corpuscular HGB Conc 33.3 g/dl (31.0-35.0); Mean Corpuscular Hemoglobin 29.2 pg (27.0-33.0); Mean Corpuscular Volume 87.7 fL (80.0-98.0); Monocytes Absolute Auto 0.6 X10*3/uL (0.1-1.2); Monocytes Percent Auto 9.3 % (2-11); Neutrophils Percent Auto 49.1 % (45-73); Platelet Count 322 X10*3/uL (160-400); Red Blood Count 4.38 X10*6/uL (4.20-5.50); Red Cell Distribution Width 14.1 % (11.0-16.0); White Blood Count 6.1 X10*3/uL (4.8-10.8)
[2024-01-22 11:31] VITALS: BP 109/70; PULSE 82; RESP 16; TEMP 36.5; O2SAT 96
--- NOTE | 2024-01-22 11:42 | PC.NURSE ---
pt verbalizing she has to leave at this time d/t needing transportation services. provider notified/aware. pt signed AMA paperwork.
[2024-01-22 11:43] LABS: Albumin Level 4.3 g/dL (3.5-5.0); Anion Gap 12 (12-20); Aspartate Amino Transferase 16 U/L (5-31); Bilirubin Total 0.2 mg/dL (0.0-1.0); Blood Urea Nitrogen 12 mg/dL (9-16); Calcium 8.8 mg/dL (8.4-10.2); Carbon Dioxide 24 mmol/L (22-29); Chloride 107 mmol/L (96-108); Creatinine Clr Calc Pharmacy 109.6; Estimated Glomerular Filt Rate > 60; Glucose Random 94 mg/dL (60-115); Potassium 4.1 mmol/L (3.3-5.1); Sodium 139 mmol/L (135-145); Total Protein 7.6 g/dL (6.5-8.0)
[2024-01-22 11:56] LABS: Alanine Aminotransferase 18 U/L (0-31); Alkaline Phosphatase 72 U/L (39-117)
== END 2024-01-22 11:34 | disposition left against medical advice (07) ==
PROVIDERS: Physician Assistant; Emergency Provider Emergency Medicine
DX: M54.16 Radiculopathy, lumbar region (principal); R10.2 Pelvic and perineal pain; R33.9 Retention of urine, unspecified; M79.605 Pain in left leg; Z79.899 Other long term (current) drug therapy
CPT/HCPCS: 36415; 74176; 80053; 81001; 81025; 85025; 99282; 99284

== ENCOUNTER → 2024-01-22 10:54 | Outpatient (BNV) | payer MEDICAID, SELFPAY | PROVIDERS: Emergency Provider Emergency Medicine; Visit Provider Radiology Diagnostic Radiology | DX: R10.9 Unspecified abdominal pain (principal) | CPT/HCPCS: 74176 ==

== ENCOUNTER 2024-04-10 12:35 | Outpatient (REF) | payer SELFPAY ==
--- OUTSIDE RECORDS SUMMARY | 2024-04-10 14:53 | XMS_ITS | Encounter Summary ---
Author Organization [facility] Address [address] [place] [address] Care Team Providers Care Tennis Ball Cover Cementer Name Role Phone Neri Camejo MD Primary Care Provider [phone]- [phone] Reason for Referral * Imaging (Routine) - Pending Review Specialty Diagnoses / Procedures Referred By Contac t Referred To Contact Radiology Diagnoses Spondylosis without myelopathy or radiculopathy, lumbar region Procedures MR Lumbar Spine wo Contrast Lalitha Tipton NP [address] [place] [address] Phone: tel: fax: [facility] Referral ID Status Reason Start Date Expiration Date V isits Requested Visits Authorized [id number] Pending Review 03/12/2024 03/12/2025 1 1 Reason for Visit * Imaging (Routine) - Pending Review Specialty Diagnoses / Procedures Referred By Jocelyne t Referred To Contact Radiology Diagnoses Spondylosis without myelopathy or radiculopathy, lumbar region Procedures MR Lumbar Spine wo Contrast Lalitha Tipton NP [address] [place] [address] Phone: tel: fax: [facility] Referral ID Status Reason Start Date Expiration Date V isits Requested Visits Authorized [id number] Pending Review 03/12/2024 03/12/2025 1 1 Encounter Details Date Type Department Care Team (Latest Contact Info) Description 03/13/2024 6:26 PM EST - 03/13/2024 11:59 PM EST Hospital Encounter [facility] MRI [address] [place] [address] Spondylosis without myelopathy or radiculopathy, lumbar region Discharge Disposition: Home or Self Care Social History Tobacco Use Types Packs/Day Years Used Date Smoking Tobacco: Former Smokeless Tobacco: Never Alcohol Use Standard Drinks/Week Comments Never 0 (1 standard drink = 0.6 oz pur e alcohol) Comments No Sex and Gender Information Value Date Recorded Sex Assigned at Female 01/19/2024 3:48 PM EST Legal Sex Female 4:31 AM EST Gender Identity Female 01/19/2024 3:48 PM EST Sexual Orientation Straight 01/19/2024 3: 48 PM EST documented as of this encounter Medications at Time of Discharge acetaminophen (TYLENOL 8 HOUR) 650 mg 8 hr tablet Take 1 tablet (650 mg total) by mouth every 8 hours as needed. fluticasone propionate (FLONASE) 50 mcg/actuation nasal spray Administer 2 sprays into each nostril daily. 12/15/2023 loratadine (CLARITIN) 10 mg tablet Take 1 tablet (10 mg total) by mouth daily. 12/15/2023 miSOPROStoL (CYTOTEC) 200 mcg tablet Insert one tab vaginally the night prior to the procedure and one tab vaginally on the morning of the procedure. 2 tablet 03/05/2024 phentermine 30 mg capsule Take 1 capsule (30 mg total) by mouth 1 (one) time each day before breakfast. Max Daily Amount: 30 mg norethindrone (AYGESTIN) 5 mg tablet Take 1 tablet (5 mg total) by mouth 1 (one) time each day. 30 tablet 3 12/25/2023 5 documented as of this encounter Discharge Disposition Disposition Code Departure Means Destination Home or Self Care documented in this encounter Plan of Treatment Upcoming Encounters Date Type Department Care Team (Latest Contact Info) Description 04/12/2024 8:45 AM EST Hospital Encounter [facility] Main OR [address] [place] [address] Sharon Camilo MD [address] [place] [address] 04/12/2024 8:45 AM EST - 04/12/2024 10:15 AM EST Surgery [facility] Main OR [address] [place] [address] Sharon Camilo MD [address] [place] [address] HYSTEROSCOPY, dilation & curettage w/Myosure [[id number] (CPT??)] 04/15/2024 1:30 PM EDT Appointment Radiology Department - [address] [phone] 11/04/2024 1:00 PM EDT Appointment Radiology Department - [address] [phone] Scheduled Procedures Name Priority Associated Diagnoses Date/Ti me HYSTEROSCOPY Menometrorrhagia Pelvic cramping Cervical stenosis (uterine cervix) 04/12/2024 8:45 AM EST documented as of this encounter Procedures Procedure Name Priority Date/Time Associated Diagnosis Comments MR LUMBAR SPINE WO CONTRAST Routine 03/13/2024 7:20 PM EST Spondylosis without myelopathy or radiculopathy, lumbar region documented in this encounter Results * MR Lumbar Spine wo Contrast (03/13/2024 7:20 PM EST) Anatomical Region Laterality Modality L-spine, Spine Magnetic Resonan ce 03/14/2024 11:1 8 AM EST Impressions 03/14/2024 11:32 AM EST Chronic bilateral L5 pars defects with mild anterolisthesis and posterior disc uncovering at L5-S1. ??Moderate left greater than right foraminal stenosis at L5-S1. ??No spinal canal stenosis. -------- FINAL REPORT -------- Dictated By: KEMAL SANTOS Dictated Date: 03/14/2024 11:18 ET Assigned Physician: KEMAL SANTOS Reviewed and Electronically Signed By: KEMAL SANTOS Signed Date: 03/14/2024 11:32 ET Workstation ID: [id number] Transcribed By: Self Edit Transcribed Date: 03/14/2024 11:18 ET Narrative 03/14/2024 11:32 AM EST PROCEDURE: Lumbar spine MRI INDICATION: Pain, spondylosis TECHNIQUE: Multiplanar, multisequence MRI of the Lumbar spine Without contrast. COMPARISON: ??No priors available. FINDINGS: Chronic bilateral L5 pars defects with mild anterolisthesis at L5-S1. No acute fracture or suspicious marrow replacing lesion. Degenerative loss of normal disc height and signal at L5-S1 with associated degenerative endplate changes. ??Disc height and signal are otherwise preserved. Mild lower lumbar predominant facet arthritis. Conus medullaris is normal and terminates at L2. ??No epidural collection or mass is seen within the spinal canal. Paraspinal muscles are normal. ??Visualized intra-abdominal and pelvic structures are normal. Findings by level: T12-L1: No focal disc protrusion, foraminal stenosis, or spinal canal stenosis. L1-2: No focal disc protrusion, foraminal stenosis, or spinal canal stenosis. L2-3: No focal disc protrusion, foraminal stenosis, or spinal canal stenosis. L3-4: No focal disc protrusion, foraminal stenosis, or spinal canal stenosis. L4-5: No focal disc protrusion, foraminal stenosis, or spinal canal stenosis. L5-S1: Anterolisthesis with posterior disc uncovering. ??Moderate left greater than right foraminal stenosis. ??No spinal canal stenosis Procedure Note Kemal Santos MD - 03/14/2024 PROCEDURE: Lumbar spine MRI INDICATION: Pain, spondylosis TECHNIQUE: Multiplanar, multisequence MRI of the Lumbar spine Withoutcontrast. COMPARISON: No priors available. FINDINGS: Chronic bilateral L5 pars defects with mild anterolisthesis at L5-S1. No acute fracture or suspicious marrow replacing lesion. Degenerative loss of normal disc height and signal at L5-S1 withassociated degenerative endplate changes. Disc height and signal areotherwise preserved. Mild lower lumbar predominant facet arthritis. Conus medullaris is normal and terminates at L2. No epidural collectionor mass is seen within the spinal canal. Paraspinal muscles are normal. Visualized intra-abdominal and pelvicstructures are normal. Findings by level: T12-L1: No focal disc protrusion, foraminal stenosis, or spinal canalstenosis. L1-2: No focal disc protrusion, foraminal stenosis, or spinal canalstenosis. L2-3: No focal disc protrusion, foraminal stenosis, or spinal canalstenosis. L3-4: No focal disc protrusion, foraminal stenosis, or spinal canalstenosis. L4-5: No focal disc protrusion, foraminal stenosis, or spinal canalstenosis. L5-S1: Anterolisthesis with posterior disc uncovering. Moderate leftgreater than right foraminal stenosis. No spinal canal stenosis IMPRESSION: Chronic bilateral L5 pars defects with mild anterolisthesis and posteriordisc uncovering at L5-S1. Moderate left greater than right foraminalstenosis at L5- S1. No spinal canal stenosis. -------- FINAL REPORT -------- Dictated By: KEMAL SANTOS Dictated Date: 03/14/2024 11:18 ET Assigned Physician: KEMAL SANTOS Reviewed and Electronically Signed By: KEMAL SANTOS Signed Date: 03/14/2024 11:32 ET Workstation ID: [id number] Transcribed By: Self Edit Transcribed Date: 03/14/2024 11:18 ET [facility] FUSER TENDER IMG MRI PROCEDURES Final R esult documented in this encounter Visit Diagnoses Diagnosis Menometrorrhagia Excessive or frequent menstruation Pelvic cramping Cervical stenosis (uterine cervix) Stricture and stenosis of cervix Spondylosis without myelopathy or radiculopathy, lumbar region Menometrorrhagia Excessive or frequent menstruation Pelvic cramping Cervical stenosis (uterine cervix) Stricture and stenosis of cervix Encounter for screening mammogram for breast cancer documented in this encounter Care Teams Tennis Ball Cover Cementer Relationship Specialty Start Date End Date Neri Camejo MD [address] [place] [address] PCP - General 03/03/22 documented as of this encounter
--- OUTSIDE RECORDS SUMMARY | 2024-04-10 14:53 | XMS_ITS | Encounter Summary ---
Author Organization [facility] [place] [address] Care Team Providers Care Vacuum Tester Cans Name Role Phone Neri Camejo MD Primary Care Provider [phone]- [phone] Reason for Visit * Reason Onset Date Comments Lab Results 02/26/2024 Encounter Details Date Type Department Care Team (Late st Contact Info) Description 02/26/2024 Telephone Obstetrics and Gynecology [address] [phone] Sharon Camilo MD [address] [place] [address] Lab Results Social History Tobacco Use Types Packs/Day Years [...] PM EST documented as of this encounter Progress Notes * Esthela Waite - 02/26/2024 1:27 PM EST Pt calling requesting callback with U/S (02/09/24)results, states can view the report on her application and wants to further discuss, as she states she is in a lot of pain . Pls advise documented in this encounter Plan of Treatment Upcoming Encounters Date Type Department Care Team (Latest Contact Info) Description 04/12/2024 8:45 AM EST Hospital Encounter [facility] Main OR [address] [place] [phone] Sharon Camilo MD [address] [place], [place] 04/12/2024 8:45 AM EST - 04/12/2024 10:15 AM EST Surgery [facility] Main OR [address] [place] [phone] Sharon Camilo MD [address] [place], [place] HYSTEROSCOPY, dilation & curettage w/Myosure [[id number] (CPT??)] 04/15/2024 1:30 PM EDT Appointment Radiology Department - [address] [phone] 11/04/2024 1:00 PM EDT Appointment Radiology Department - [address] [phone] Scheduled Procedures Name Priority Associated Diagnoses Date/Ti me HYSTEROSCOPY Menometrorrhagia Pelvic cramping Cervical stenosis (uterine cervix) 04/12/2024 8:45 AM EST documented as of this encounter Visit Diagnoses Not on filedocumented in this encounter Care Teams Vacuum Tester Cans Relationship Specialty Start Date End Date Neri Camejo MD [address] [place] [address] PCP - General 03/03/22 documented as of this encounter
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
--- OUTSIDE RECORDS SUMMARY | 2024-04-10 14:53 | XMS_ITS | Encounter Summary ---
Author Organization [facility] [place] [address] Care Team Providers Care Manager Semiconductor Name Role Phone Neri Camejo MD Primary Care Provider +1- [phone] Reason for Visit * Reason Onset Date Comments Advice Only 04/09/2024 Encounter Details Date Type Department Care Team (Late st Contact Info) Description 04/09/2024 Telephone Obstetrics and Gynecology [address] [phone] Sharon Spencer MD [address] [place] [address] Advice Only Social History Tobacco Use Types Packs/Day Years [...] as of this encounter Progress Notes * Sara Massey RN - 04/09/2024 10:53 AM EST [facility] supervisor finishing room service #[id number] called pt. Pt had questions on U/S report from the 02/09/24. Pt admitsto taking Ibuprofen on 04/08/24 for pelvic pain. Pt was advised via letter with pre op instructions to NOT take Ibuprofen for 7 days before her surgery 04/12/24. Message sent to Dr Spencer. Pt advisedto follow directions on pre op instruction sheet. * Ronit Hernandez - 04/09/2024 10:15 AM EST Chief Complaint/problem: Patient has questions /concerns for upcoming hysteroscopy. She has questions about taking the medication and if dr spencer reviewed the MRI results and know about her cysts. She is aware dr spencer is not here today. Please use interpretor for paraguayan How long has the patient had this problem? Pt???s OIL SCOUT provider: Sharon Spencer MD Last menstrual period (LMP) or EDC (due date): na documented in this encounter Plan of Treatment Upcoming Encounters Date Type Department Care Team (Latest Contact Info) Description 04/12/2024 8:45 AM EST Hospital Encounter [facility] OR [address] [place] [phone] Sharon Spencer MD [address] [place] [address] 04/12/2024 8:45 AM EST - 04/12/2024 10:15 AM EST Surgery [facility] OR [address] [place] [phone] Sharon Spencer MD [address] [place] [address] HYSTEROSCOPY, dilation & curettage w/Myosure [[id number] (CPT??)] 04/15/2024 1:30 PM EDT Appointment Radiology Department - [address] [phone] 11/04/2024 1:00 PM EDT Appointment Radiology Department - [address] [phone] Scheduled Procedures Name Priority Associated Diagnoses Date/Ti me HYSTEROSCOPY Menometrorrhagia Pelvic cramping Cervical stenosis (uterine cervix) 04/12/2024 8:45 AM EST documented as of this encounter Visit Diagnoses Not on filedocumented in this encounter Care Teams Manager Semiconductor Relationship Specialty Start Date End Date Neri Camejo MD [address] [place] [address] PCP - General 03/03/22 documented as of this encounter
--- OUTSIDE RECORDS SUMMARY | 2024-04-10 14:53 | XMS_ITS | Encounter Summary ---
Author Organization [facility] [place] [address] Care Team Providers Care Systems Auditor Name Role Phone Neri Camejo MD Primary Care Provider [phone]- [phone] Encounter Details Date Type Department Care Team (Late st Contact Info) Description 03/08/2024 Telephone Obstetrics and Gynecology - [address] [phone] Sharon Camilo MD [address] [place], [place] Social History Tobacco Use Types Packs/Day Years [...] as of this encounter Progress Notes * Leesa Winchester - 03/18/2024 1:05 PM EST Hysteroscopy, D & C has been scheduled on 04/12/2024 at [facility] with Dr. Camilo. Patient has been notified by phone and a letter has been sent to her. calendar has been updated and schedulers have been notified * Leesa Winchester - 03/08/2024 11:21 AM EST Call pt with roller gold leaf, mailbox was full, unable ot leave a VM. Will try again later. documented in this encounter Plan of Treatment Upcoming Encounters Date Type Department Care Team (Latest Contact Info) Description 04/12/2024 8:45 AM EST Hospital Encounter [facility] OR [address] [place] [phone] Sharon Camilo MD [address] [place] [address] 04/12/2024 8:45 AM EST - 04/12/2024 10:15 AM EST Surgery [facility] OR [address] [place] [phone] Sharon Camilo MD [address] [place], [place] HYSTEROSCOPY, dilation & curettage w/Myosure [[id number] (CPT??)] 04/15/2024 1:30 PM EDT Appointment Radiology Department - [address] [phone] 11/04/2024 1:00 PM EDT Appointment Radiology Department - [address] [phone] Scheduled Procedures Name Priority Associated Diagnoses Date/Ti me HYSTEROSCOPY Menometrorrhagia Pelvic cramping Cervical stenosis (uterine cervix) 04/12/2024 8:45 AM EST documented as of this encounter Visit Diagnoses Not on filedocumented in this encounter Care Teams Systems Auditor Relationship Specialty Start Date End Date Neri Camejo MD [address] [place] [address] PCP - General 03/03/22 documented as of this encounter
--- OUTSIDE RECORDS SUMMARY | 2024-04-10 14:54 | XMS_ITS | Encounter Summary ---
Author Organization [employer] Address [address] [facility] 7 [place] [address] Care Team Providers Care Fur Feeder Name Role Phone Lavern Carney MD Primary Care Provider [phone] Reason for Visit * Reason Comments Pre-visit Planning (Unable to reach for PVP screening, LVM) Encounter Details Date Type Department Care Team ([facility] st Contact Info) Description 03/12/2024 Patient Outreach [facility] [address] [place], [place] [phone] Lavern Carney MD [address] [place], [place] [phone] Pre-visit Planning ((Unable to reach for PVP screening, LVM)) Social History Tobacco Use Types Packs/Day Years Used Date Smoking Tobacco: Never Alcohol Use Standard Drinks/Week Comments Never 0 (1 standard drink = 0.6 oz pur e alcohol) Alcohol Answer Date Recorded Frequency of Alcohol Consumption Not on file 12/15/2023 Average Number of Drinks Not on file 024 Frequency of Binge Drinking Not on file 09/2023 Score 0 12/15/2023 Depression Answer Date Recorded Patient Health Questionnaire-9 Score 0 12/15/2023 Patient Health Questionnaire-9 Score 0 12/15/2023 Last PHQ-9: Questionnaire Data Not on file 1 02/13/2023 Housing Stability Answer Date Recorded What is your housing situation today? I have housing today, but I am worried about losing housing in the future 11/13/[address] you li ve. Do you have problems with any of the following? None of the above 11/13/2023 Food Insecurity Answer Date Recorded Within the past 12 months, y ou worried that your food would run out before you got money to buy more: Sometimes True 2023 Within the past 12 months,th e food you bought just didn't last and you didn't have enough money to get more: Never True 12/15/2023 Transportation Answer Date Recorded In the past 12 months, has l ack of transportation kept you from medical appts, meetings, work or from getting things needed for daily living? No 11/13/2023 Utilities Answer Date Recorded In the past 12 months, has t he electric, gas, oil or water company threatened to shut off services in your home? No 11/13/2023 Depression Answer Date Recorded Patient Health Questionnaire-2 Score 0 12/15/2023 Internet Access Answer Date Recorded Internet Access Q1 Yes 11/13/2023 Internet Access Q2 Not on file 11/13/2023 Comments Unknown Sex and Gender Information Value Date Recorded Sex Assigned at Female 10/12/2023 11:13 AM EDT Legal Sex Female 1:35 PM EDT Gender Identity Female 10/12/2023 11:13 AM EDT Sexual Orientation Straight 10/12/2023 11 :13 AM EDT documented as of this encounter Progress Notes * Yudith Villa - 03/12/2024 9:17 AM EST CC Yudith. Placed outbound call to patient to complete pre-visit planning. No answer at this time. Patient name and were not confirmed. CC left voicemail requesting return call. Direct contact information provided. documented in this encounter Plan of Treatment Upcoming Encounters Date Type Department Care Team ([facility] st Contact Info) Description 05/06/2024 12:00 PM EDT Nurse Only [facility] [address] [place] [address] 07/05/2024 3:30 PM EDT Telemedicine [facility] [address] [place] [address] Lavern Carney MD [address] [place] [address] documented as of this encounter Visit Diagnoses Not on filedocumented in this encounter Additional Health Concerns Assessment Noted Time PHQ-9 Depression Total Score: 0 12/15/19 24 9:10 AM EST documented as of this encounter Care Teams Fur Feeder Relationship Specialty Start Date End Date Lavern Carney MD [address] [place] [address] PCP - General Family Medicine 12/15/23 documented as of this encounter
--- OUTSIDE RECORDS SUMMARY | 2024-04-10 14:54 | XMS_ITS | Encounter Summary ---
Author Organization [employer] Address [address] [facility] [address] [place] [address] Care Team Providers Care Hotel Director Name Role Phone Lavern Carney MD Primary Care Provider [phone] Reason for Visit * Reason Onset Date Comments med refill 04/10/2024 Encounter Details Date Type Department Care Team ([facility] st Contact Info) Description 04/10/2024 Refill [facility] [address] [place], [place] [phone] Lavern Carney MD [address] [place], [place] [phone] Class 2 severe obesity with serious comorbidity and body mass index (BMI) of 36.0 to 36.9 in adult, unspecified obesity type (CMS/HCC) Social History Tobacco Use Types Packs/Day Years [...] AM EDT documented as of this encounter Miscellaneous Notes * Addendum Note - Oscar Jessica RN - 04/10/2024 12:59 PM ESTAddended by: OSCAR JESSICA on: 04/10/2024 12:59 PM Modules accepted: Orders * Telephone Encounter - Mimi Sims - 04/10/2024 12:48 PM EST Pt walked in requesting refill for Phentermine 30mg documented in this encounter Plan of Treatment Upcoming Encounters Date Type Department Care Team (Late st Contact Info) Description 05/06/2024 12:00 PM EDT Nurse Only [facility] [address] [place] [address] 07/05/2024 3:30 PM EDT Telemedicine [facility] [address] [place] [phone] Lavern Carney MD [address] [place], [place] [phone] documented as of this encounter Visit Diagnoses Diagnosis Class 2 severe obesity with serious comorbidity and body mass index (BMI) of 36.0 to 36.9 in adult, unspecified obesity type (CMS/HCC) documented in this encounter Additional Health Concerns Assessment Noted Time PHQ-9 Depression Total Score: 0 12/15/19 24 9:10 AM EST documented as of this encounter Care Teams Hotel Director Relationship Specialty Start Date End Date Lavern Carney MD [address] [place] [address] PCP - General Family Medicine 12/15/23 documented as of this encounter
--- OUTSIDE RECORDS SUMMARY | 2024-04-10 14:54 | XMS_ITS | Encounter Summary ---
Author Organization [employer] Address [address] [place] [address] 7 [place] [address] Care Team Providers Care Optical Model Maker And Tester Name Role Phone Lavern Carney MD Primary Care Provider [phone] Reason for Referral * Imaging (Routine) - Closed Specialty Diagnoses / Procedures Referred By Jocelyne t Referred To Contact Radiology Diagnoses Lumbar spondylosis Procedures MR Lumbar Spine w/o Contrast Lalitha Tipton CNP [address] [place] [address] Phone: tel: fax: [facility] [address] [place] [address] Phone: tel: fax: Referral ID Status Reason Start Date Expiration Date Visits Re quested Visits Authorized [id number] Closed 03/11/2024 03/11/2025 1 1 Encounter Details Date Type Department Care Team (Late st Contact Info) Description 03/11/2024 Orders Only [facility] [address] [place], [place] [phone] Lalitha Tipton CNP [address] [place] [address] Lumbar spondylosis (Primary Dx) Social History Tobacco Use Types Packs/Day Years [...] AM EDT documented as of this encounter Plan of Treatment Upcoming Encounters Date Type Department Care Team (Late st Contact Info) Description 05/06/2024 12:00 PM EDT Nurse Only [facility] [address] [place] [address] [phone] 07/05/2024 3:30 PM EDT Telemedicine [facility] [address] [place] [phone] Lavern Carney MD [address] [place] [address] Scheduled Orders Name Type Priority Associated Diagnoses Orde r Schedule MR Lumbar Spine w/o Contrast Imaging Routine Lumbar spondylosis Expected: 03/11/2024, Expires: 03/11/2025 documented as of this encounter Visit Diagnoses Diagnosis Lumbar spondylosis- Primary Lumbosacral spondylosis without myelopathy documented in this encounter Additional Health Concerns Assessment Noted Time PHQ-9 Depression Total Score: 0 12/15/19 24 9:10 AM EST documented as of this encounter Care Teams Optical Model Maker And Tester Relationship Specialty Start Date End Date Lavern Carney MD [address] [place] [phone] PCP - General Family Medicine 12/15/23 documented as of this encounter
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
--- OUTSIDE RECORDS SUMMARY | 2024-04-10 14:54 | XMS_ITS | Clinical Summary ---
Author Organization [facility] [address] [place] [address] [place] [phone] Phone Care Team Providers Care Strategic Sourcing Manager Name Role Phone Neri Camejo MD Primary Care Provider [phone] Allergies No known active allergies Medications acetaminophen (TYLENOL 8 HOUR) 650 mg 8 hr tablet Take 1 tablet (650 mg total) by mouth every 8 hours as needed. Active loratadine (CLARITIN) 10 mg tablet Take 1 tablet (10 mg total) by mouth daily. 4 12/10/19 25 Active fluticasone propionate (FLONASE) 50 mcg/actuation nasal spray Administer 2 sprays into each nostril daily. 4 12/15/19 25 Active miSOPROStoL (CYTOTEC) 200 mcg tablet Insert one tab vaginally the night prior to the procedure and one tab vaginally on the morning of the procedure. 2 tablet 5 Active phentermine 30 mg capsule Take 1 capsule (30 mg total) by mouth 1 (one) time each day before breakfast. Max Daily Amount: 30 mg Active norethindrone (AYGESTIN) 5 mg tablet Take 1 tablet (5 mg total) by mouth 1 (one) time each day. 30 tablet 3 4 03/24/19 25 Active Problems Problem Noted Date Diagnosed Date Obesity (BMI 35.0-39.9 without comorbidity) 02/07 Pelvic cramping 03/05/2024 Cervical stenosis (uterine cervix) 03/05/2024 Menometrorrhagia 12/25/2023 Assessment & Plan (12/25/2023 7:10 PM EST): Recommended pelvic US to assess for intracavitary pathology. She was counseled re: hormonal options for management. She prefers to be amenorrheic. We will start Aygestin. She was counseled re: symptoms with starting including LISA and breast pain. She agree. Breast discharge 12/25/2023 Breast pain in female 12/25/2023 Assessment & Plan (12/25/2023 7:09 PM EST): Referred to breast clinic for follow up Pituitary adenoma 12/04/2023 Thyroid nodule 12/04/2023 Encounters Date Type Department Care Team Description 04/09/2024 Telephone Obstetrics and Gynecology - [address] [phone] Sharon Camilo MD Advice Only 03/13/2024 6:26 PM EST - 03/13/2024 11:59 PM EST Hospital Encounter [facility] MRI [address] [place] [address] Spondylosis without myelopathy or radiculopathy, lumbar region Discharge Disposition: Home or Self Care 03/08/2024 Telephone Obstetrics and Gynecology - [address] [phone] Sharon Camilo MD 03/05/2024 1:00 PM EST Procedure visit Obstetrics and Gynecology - [address] [phone] Sharon Camilo MD Menometrorrhagia (Primary Dx); Obesity (BMI 35.0-39.9 without comorbidity); test negative 02/27/2024 Telephone Obstetrics and Gynecology - [address] [phone] Monica Hassan MA Results 02/26/2024 Telephone Obstetrics and Gynecology - [address] [phone] Sharon Camilo MD Lab Results 02/09/2024 2:15 PM EST - 02/09/2024 11:59 PM EST Hospital Encounter [facility] Ultrasound [address] [place] [address] Menometrorrhagia Discharge Disposition: Home or Self Care 01/25/2024 Telephone Endocrinology - [address] [phone] Magda Latham PA Results from Last 3 Months Immunizations Name Administration Dates Next Due Pfizer SARS-CoV-2 COVID-19, mRNA, LNP-S, preservative free 06/29/2020,06/08/2020 Surgical History Surgery Date Site/Laterality Comments SECTION, LOW TRANSVERSE x3 Medical History Medical History Date Comments High cholesterol Obesity Pituitary tumor sees endocrine Thyroid nodule sees Endo, refer red for US Family History Medical History Relation Name Comments Breast cancer Neg Hx Colon cancer Neg Hx Ovarian cancer Neg Hx Pancreatic cancer Neg Hx Prostate cancer Neg Hx Uterine cancer Neg Hx Social History Tobacco Use Types Packs/Day Years [...] 3:48 PM EST Sexual Orientation Straight 01/19/2024 3 :48 PM EST Obstetrics History Para Term AB IAB SAB Ectopic Multiple Livin g Live Births 3 3 3 0 0 0 0 0 0 3 0 Date Outcome GA Total Labor Labor/2nd/3rd Weight Sex Type Anes PTL Dina A1 A5 Name Clin Term Term Term Last Filed Vital Signs Vital Sign Reading Time Taken Comments Blood Pressure 112/76 03/05/2024 1:03 PM EST Pulse 82 03/05/2024 1:03 PM EST Temperature - - Respiratory Rate 16 03/05/2024 1:03 PM EST Oxygen Saturation - - Inhaled Oxygen Concentration - - Weight 98.4 kg (217 lb) 03/05/2024 1:03 PM EST Height 165.1 cm (5' 5 ) 03/05/2024 1:03 PM EST Body Mass Index 36.11 03/05/2024 1:03 PM EST Plan of Treatment Upcoming Encounters Date Type Department Care Team (Latest Contact Info) Description 04/12/2024 8:45 AM EST Hospital Encounter [facility] Main OR [address] [place] [phone] Sharon Camilo MD [address], [place] 04/12/2024 8:45 AM EST - 04/12/2024 10:15 AM EST Surgery [facility] Main OR [address] [place] [phone] Sharon Camilo MD [address], [place] HYSTEROSCOPY, dilation & curettage w/Myosure [[id number] (CPT??)] 04/15/2024 1:30 PM EDT Appointment Radiology Department - [address] [phone] 11/04/2024 1:00 PM EDT Appointment Radiology Department - [address] [phone] Scheduled Procedures Name Priority Associated Diagnoses Date/Ti me HYSTEROSCOPY Menometrorrhagia Pelvic cramping Cervical stenosis (uterine cervix) 04/12/2024 8:45 AM EST Health Maintenance Due Date Last Done Comments DTaP,Tdap,and Td Vaccines (1 - Tdap) 2000 COVID-19 Vaccine ( - season) 2023 09/07/2021, 06/29/2020, 06/08/2020 Influenza Vaccine (#1) 2023 Social Influencers of Health Screening 11/15/2023 Hepatitis B Vaccines (3 of 3 - 19+ 3-dose series) 05/02/2024 12/04/2023, 11/03/2023 Depression Screening 12/14/2024 12/15/2023 Breast Cancer Screening 10/18/2025 10/19/2023, 10/18 Cholesterol Screening (Lipid Panel) 12/14/2028 12/15/2023, 11/30/2021, 11/30/2021, Additional history exists Cervical Cancer Screening: HPV 12/24/2028 12/25/2023 Hepatitis C Screening Completed 07/30/2020 HIV Screening Completed 11/01/2023 HIB Vaccines Aged Out No longer eligi ble based on patient's age to complete this topic HPV Vaccines Aged Out No longer eligi ble based on patient's age to complete this topic Hepatitis A Vaccines Aged Out No long er eligible based on patient's age to complete this topic IPV Vaccines Aged Out No longer eligi ble based on patient's age to complete this topic MMR Vaccines Aged Out No longer eligi ble based on patient's age to complete this topic Meningococcal ACWY Vaccine Aged Out N o longer eligible based on patient's age to complete this topic Meningococcal B Vacine Aged Out No lo nger eligible based on patient's age to complete this topic Pneumococcal Vaccine: Pediatrics (0 to 5 Years) and At-Risk Patients (6 to 64 Years) Aged Out No longer eligible based on patient's age to complete this topic RSV Immunization Patients Under 20 months Aged Out No longer eligible based on patient's age to complete this topic Varicella Vaccines Aged Out No longer eligible based on patient's age to complete this topic Procedures Procedure Name Priority Date/Time Associated Diagnosis Comments MR LUMBAR SPINE WO CONTRAST Routine 03/13/2024 7:20 PM EST Spondylosis without myelopathy or radiculopathy, lumbar region POC , URINE DIAGNOSTIC Routine 03/05/2024 1:10 PM EST test negative US PELVIS NON OB COMPLETE W TRANSVAGINAL Routine 02/09/2024 3:02 PM EST Menometrorrhagia HPV WITH REFLEX GENOTYPE Routine 12/25/2023 4:44 PM EST Screening for cervical cancer DIAGNOSTIC MAMMOGRAPHY INCLUDING CAD BILATERAL Routine 10/19/2023 2:12 PM EDT Other disorders of pituitary gland (CMS/HCC) Irregular menstruation, unspecified Nipple discharge Unspecified visual disturbance Nontoxic goiter, unspecified from Last 3 Months or Most Recently Relevant to Health Maintenance Results * MR Lumbar Spine wo Contrast [...] Signed Date: 03/14/2024 11:32 ET Workstation ID: [id number] Transcribed By: Self Edit Transcribed Date: 03/14/2024 [...] Signed Date: 03/14/2024 11:32 ET Workstation ID: [id number] Transcribed By: Self Edit Transcribed Date: 03/14/2024 11:18 ET [facility] IMG MRI PROCEDURES Final R esult * (ABNORMAL) POC , urine manually resulted (03/05/2024 1:10 PM EST) HCG, Ur POC Negative Negative POC hCG Int QC Pass? Yes Yes Urine Urine specimen obtained by clean catch procedure / Unknown 03/05/2024 1:10 PM EST Sharon Camilo MD POINT OF CARE TEST ENTER/ED IT ORDERABLES Final Result * US Pelvis Non OB Complete w Transvaginal (02/09/2024 3:02 PM EST) Anatomical Region Laterality Modality Body, Pelvis Ultrasound 02/19/2024 1:46 PM EST Impressions 02/19/2024 1:49 PM EST Impression: 1. Mildly enlarged uterus, unchanged, with endometrium measuring 13 mm in thickness double layer. 2. Normal appearance to the ovaries for age. 3. No free fluid in the pelvis. No significant change. Teletoby LEWIS ([id number]) -------- FINAL REPORT -------- Dictated By: Fern Nguyen Dictated Date: 02/19/2024 13:46 ET Assigned Physician: Fern Nguyen Reviewed and Electronically Signed By: Fern Nguyen Signed Date: 02/19/2024 13:49 ET Workstation ID: [id number] Transcribed By: Self Edit Transcribed Date: 02/19/2024 13:46 ET Narrative 02/19/2024 1:49 PM EST History: 43-year-old 3 para 3, LMP 12/17/23, with menometrorrhagia for several months. Comparison: 12/07/21 Findings: Transvesical imaging of the pelvis is supplemented with transvaginal imaging for better detail of the uterus and adnexa. The uterus remains mildly enlarged, measuring 11.6 cm in length by 4.5 cm in depth by 5.9 cm in width. The endometrial echo complex measures 13 mm in thickness double layer. No endometrial fluid collections are seen. There are multiple nabothian cysts in the cervix. The right ovary measures 3.3 x 1.7 x 2.5 cm, with normal vascular flow by Doppler analysis. The left ovary measures 2.7 x 1.7 x 2.9 cm and also has normal vascular flow. Small follicles are noted in the left ovary. No adnexal masses are seen. There is no free fluid in the cul-de-sac. Procedure Note Fern Nguyen MD - 02/19/2024 History: 43-year-old 3 para 3, LMP 12/17/23, with menometrorrhagiafor several months. Comparison: 12/07/21 Findings: Transvesical imaging of the pelvis is supplemented with transvaginalimaging for better detail of the uterus and adnexa. The uterus remains mildly enlarged, measuring 11.6 cm in length by 4.5 cmin depth by 5.9 cm in width. The endometrial echo complex measures 13 mmin thickness double layer. No endometrial fluid collections are seen.There are multiple nabothian cysts in the cervix. The right ovary measures 3.3 x 1.7 x 2.5 cm, with normal vascular flow byDoppler analysis. The left ovary measures 2.7 x 1.7 x 2.9 cm and also hasnormal vascular flow. Small follicles are noted in the left ovary. No adnexal masses are seen. There is no free fluid in the cul-de-sac. IMPRESSION: Impression: 1. Mildly enlarged uterus, unchanged, with endometrium measuring 13 mm inthickness double layer. 2. Normal appearance to the ovaries for age. 3. No free fluid in the pelvis. No significant change. Isiah LEWIS ([id number]) -------- FINAL REPORT -------- Dictated By: Fern Nguyen Dictated Date: 02/19/2024 13:46 ET Assigned Physician: Fern Nguyen Reviewed and Electronically Signed By: Fern Nguyen Signed Date: 02/19/2024 13:49 ET Workstation ID: [id number] Transcribed By: Self Edit Transcribed Date: 02/19/2024 13:46 ET us Sharon Camilo MD [facility] [place] Final Res ult * HPV with reflex genotype (12/25/2023 4:44 PM EST) HPV Negative Negative LAB MICROBIOLOGY METHOD 12/28/2023 2:51 PM EST [facility] Brushing/Spatula Cervix uteri structure / Unknown 12/25/2023 4:44 PM EST 12/27/2023 10:45 AM EST us Sharon Camilo MD LAB MOLECULAR DIAGNOSTICS O RDERABLES Final Result [facility] [address] [place] [address], [place] [phone] * DIAGNOSTIC MAMMOGRAPHY INCLUDING CAD BILATERAL (10/19/2023 2:12 PM EDT) Anatomical Region Laterality Modality Mammography 10/12/2023 4:41 PM EDT Narrative 10/19/2023 2:23 PM EDT This is a summary report. The complete report is available in the patient's medical record. If you cannot access the medical record, please contact the sending organization for a detailed fax or copy. BILATERAL 3D DIGITAL DIAGNOSTIC MAMMOGRAM History: Workup for left breast clear/green discharge, ??patient reports it usually always starts out clear and then green for approximately 6 months Comparison: Baseline Technique: Bilateral full-field digital 3D mammography was performed using standard CC and MLO projections CAD was used to evaluate this mammogram. Findings: Density: ?? The breasts are heterogeneously dense which may obscure small masses-C RIGHT: No suspicious masses, groups of microcalcification or areas of architectural distortion identified. ??Typically benign parenchymal asymmetries LEFT: No suspicious masses, groups of microcalcifications or areas of architectural distortion identified. Typically benign parenchymal asymmetries. ??No sonographic evidence of malignancy LEFT BREAST TARGETED ULTRASOUND EVALUATION HISTORY: Workup for clear/green discharge TECHNIQUE: Ultrasonographic examination is performed using a linear array transducer. ??Targeted left breast ultrasound was performed of the retroareolar region to evaluate for area of clinical concern. ??Real-time sonographic scanning was also performed by the radiologist FINDINGS: In the retroareolar region, typically benign ductal ectasia is present. ??No sonographic evidence of malignancy. Impression: No sonographic or mammographic evidence of malignancy BI-RADS Category 2 benign findings Recommendation: Recommend consultation with breast surgeon to evaluate for clear/green discharge, routine annual screening mammography [address] [address] Procedure Note Aura Cisneros MD - 01/01/2024 This is a summary report. The complete report is available in thepatient's medical record. If you cannot access the medical record, pleasecontact the sending organization for a detailed fax or copy. BILATERAL 3D DIGITAL DIAGNOSTIC MAMMOGRAM History: Workup for left breast clear/green discharge, patient reports itusually always starts out clear and then green for approximately 6months Comparison: Baseline Technique: Bilateral full-field digital 3D mammography was performed usingstandard CC and MLO projections CAD was used to evaluate this mammogram. Findings: Density: The breasts are heterogeneously dense which may obscure smallmasses-C RIGHT: No suspicious masses, groups of microcalcification or areas ofarchitectural distortion identified. Typically benign parenchymalasymmetries LEFT: No suspicious masses, groups of microcalcifications or areas ofarchitectural distortion identified. Typically benign parenchymalasymmetries. No sonographic evidence of malignancy LEFT BREAST TARGETED ULTRASOUND EVALUATION HISTORY: Workup for clear/green discharge TECHNIQUE: Ultrasonographic examination is performed using a linear arraytransducer. Targeted left breast ultrasound was performed of theretroareolar region to evaluate for area of clinical concern. Real-timesonographic scanning was also performed by the radiologist FINDINGS: In the retroareolar region, typically benign ductal ectasia is present.No sonographic evidence of malignancy. Impression: No sonographic or mammographic evidence of malignancy BI-RADS Category 2 benign findings Recommendation: Recommend consultation with breast surgeon to evaluate forclear/green discharge, routine annual screening mammography [address] [address] Magda LEWIS IMG BI PROCEDURES Final Res ult from Last 3 Months or Most Recently Relevant to Health Maintenance Insurance MEDICAID [place] Advance Directives Documents on File Type Date Recorded Patient Care Specialist Expl anation Health Care Decision (hx) 03/10/2022 AD INGRAM DIRECTIVE Health Care Decision (hx) 03/10/2022 AD INGRAM DIRECTIVE Health Care Decision (hx) 03/10/2022 AD INGRAM DIRECTIVE Care Teams Strategic Sourcing Manager Relationship Specialty Start Date End Date Neri Camejo MD [address] [place] [address] PCP - General 03/03/22
--- OUTSIDE RECORDS SUMMARY | 2024-04-10 14:54 | XMS_ITS | Encounter Summary ---
Author Organization [employer] Address [address] [facility] [address] [place] [address] Care Team Providers Care Girls Tennis Coach Name Role Phone Lavern Carney MD Primary Care Provider [phone] Reason for Visit * Reason Onset Date Comments insurance 03/26/2024 Encounter Details Date Type Department Care Team ([facility] st Contact Info) Description 03/26/2024 Telephone [facility] MEDICINE [address] [place], [place] [phone] Lavern Carney MD [address] [place], [place] [phone] insurance Social History Tobacco Use Types Packs/Day Years [...] as of this encounter Miscellaneous Notes * Telephone Encounter - Mimi Sims - 03/26/2024 10:57 AM EST Called pt to check her in for her appt but her insurance is inactive pt said she thinks she has a new insurance but she doesn't know the name or member ID so I told pt she would have to come in to insurance enrollment to see what insurance she has or if they can help her. documented in this encounter Plan of Treatment Upcoming Encounters Date Type Department Care Team (Late st Contact Info) Description 05/06/2024 12:00 PM EDT Nurse Only [facility] MEDICINE [address] [place] [phone] 07/05/2024 3:30 PM EDT Telemedicine [facility] MEDICINE [address] [place] [address] Lavern Carney MD [address] [place] [address] documented as of this encounter Visit Diagnoses Not on filedocumented in this encounter Additional Health Concerns Assessment Noted Time PHQ-9 Depression Total Score: 0 12/15/19 24 9:10 AM EST documented as of this encounter Care Teams Girls Tennis Coach Relationship Specialty Start Date End Date Lavern Carney MD [address] [place] [address] PCP - General Family Medicine 12/15/23 documented as of this encounter
--- OUTSIDE RECORDS SUMMARY | 2024-04-10 14:54 | XMS_ITS | Encounter Summary ---
Author Organization [employer] Address [address] [facility] [address] [place] [address] Care Team Providers Care Enterprise Application Analyst Name Role Phone Lavern Carney MD Primary Care Provider [phone] Reason for Visit * Reason Comments Med Refill Encounter Details Date Type Department Care Team (Late st Contact Info) Description 03/12/2024 Refill [facility] MEDICINE [address] [place], [place] [phone] Lavern Carney MD [address] [place], [place] [phone] Social History Tobacco Use Types Packs/Day Years [...] Description 05/06/2024 12:00 PM EDT Nurse Only [facility] MEDICINE [address] [place] [phone] 07/05/2024 3:30 PM EDT Telemedicine [facility] MEDICINE [address] [place] [phone] Lavern Carney MD [address] [place] [phone] documented as of this encounter Visit Diagnoses Not on filedocumented in this encounter Additional Health Concerns Assessment Noted Time PHQ-9 Depression Total Score: 0 12/15/19 9:10 AM EST documented as of this encounter Care Teams Enterprise Application Analyst Relationship Specialty Start Date End Date Lavern Carney MD [address] [place] [address] PCP - General Family Medicine 12/15/23 documented as of this encounter
--- OUTSIDE RECORDS SUMMARY | 2024-04-10 14:54 | XMS_ITS | Data Portability ---
Author Organization [facility], [address] Address [address] [place] [address] Assessment No assessment recorded. Plan of Treatment Reminders Order Date Submit Date Provider Last Modified By Organization Details Last Modified Time Details Appointments None record ed. Lab None record ed. Referral None record ed. Procedures None record ed. Surgeries None record ed. Imaging None record ed. Medication Orders None record ed. Patient TargetsNo targets recorded. Patient InstructionsNo instructions recorded. Reason for Referral None Reported. Medical Equipment None Reported. Vitals None Recorded Social History None recorded. Functional Status None recorded. Mental Status None recorded. Family History Nothing Reported. Medical History No medical history recorded. Past Encounters Encounter ID Performer Location Encounter Start Date Encounter Closed Date Diagnosis/Indication Diagnosis SNOMED-CT Code Diagnosis ICD10 Code Diagnosis Note [id number] [facility] [address] [place] [address] 09/28/2020 15:51:05 09/28/2020 17:20:24 Health Concerns Section Related Observation LastModified by Organization Detai ls LastModified Time None Recorded Concern Status LastModified by Organization Details LastModified Time None Recorded Advance Directives Directive None Recorded Payers Encounter Date Sequence Insurance Name Policy Number Policy Umanzor Covered Member ID Umanzor Member ID Guarantor Name 09/28/2020 1 [facility] [id number] Delma Guy [id number] Delma Guy
--- OUTSIDE RECORDS SUMMARY | 2024-04-10 14:54 | XMS_ITS | Clinical Summary ---
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 [place] [address] [phone] from Last 3 Months or Most Recently Relevant to Health Maintenance Insurance [facility] C3 Care Teams Territory Service Representative Relationship Specialty Start Date End Date Lavern Carney MD [address] [place] [address] PCP - General Family Medicine 12/15/23
--- OUTSIDE RECORDS SUMMARY | 2024-04-10 14:54 | XMS_ITS | Clinical Summary ---
Author Organization [facility] Address [address] [place] [address] Care Team Providers Care Radiotelegraphist Name Role Phone Pcp, Need Primary Care Provider Unavailabl e Medications No known medications Active Problems No known active problems Social History Tobacco Use Types Packs/Day Years Used Date Smoking Tobacco: Never Assessed Sex and Gender Information Value Date Recorded Sex Assigned at Female 09/27/2023 5:13 PM EDT Gender Identity Not on file Sexual Orientation Not on file Job Start Date Occupation Industry Not on file Not on file Not on file Last Filed Vital Signs Vital Sign Reading Time Taken Comments Blood Pressure 120/67 09/27/2023 7:05 PM EDT Pulse 61 09/27/2023 7:05 PM EDT Temperature 36.7 ??C (98.1 ??F) 09/27/2023 7:05 PM ED T Respiratory Rate 16 09/27/2023 7:05 PM EDT Oxygen Saturation 99% 09/27/2023 7:05 PM EDT Inhaled Oxygen Concentration - - Weight 101.5 kg (223 lb 12.3 oz) 09/27/2023 3:26 PM EDT Height 165.1 cm (5' 5 ) 09/27/2023 3:26 PM EDT Body Mass Index 37.24 09/27/2023 3:26 PM EDT Plan of Treatment Health Maintenance Due Date Last Done Comments Hepatitis B Vaccines (1 of 3 - 3-dose series) 1981 Depression Screening 1993 Preventative Health Evaluation 11/08/1999 DTap / Tdap / Td (1 - Tdap) 2000 Cervical Cancer Screening (Pap Smear) 2002 COVID-19 Vaccine (2023-2 5 season) 2023 06/29/2020, 06/08/2020 Influenza Vaccine (#1) 2023 Hepatitis C Screening Completed 07/30/2020 Pneumococcal Vaccine Aged Out No long er eligible based on patient's age to complete this topic RSV Ped < 20 months Aged Out No longe r eligible based on patient's age to complete this topic Care Teams Radiotelegraphist Relationship Specialty Start Date End Date PcpHelena PCP - General Internal Medicine 09/27/23
[2024-04-11 17:08] LABS: Prolactin 6.8 ng/mL
== END 2024-04-10 12:36 | disposition home or self-care (01) ==
LOC: HO.HHCL 12:35
DX: D35.2 Benign neoplasm of pituitary gland (principal)
CPT/HCPCS: 36415; 84146